=== PATIENT | male | born 1955 | race Caucasian/White ===

== ENCOUNTER 2016-12-24 20:57 | Emergency (ER) | payer SELFPAY ==
[2016-12-24] MEDS ORDERED: GLUCAGON,HUMAN RECOMBINANT 1 MG VIAL ONE (21:30)
--- NOTE | 2016-12-24 21:31 | ERNOTE ---
Medical Problem HPI - Narrative Date of Service: 12/24/16 - General Chief Complaint: General Assessment Time Seen by Provider: 12/24/16 21:10 Source: patient Exam Limitations: no limitations - Immun/Allergies/Home Medications Immunizations: IMMUNIZATION HX History of Influenza Vaccine No Hx Pneumococcal Vaccination No Allergies/Adverse Reactions: Allergies Penicillins Allergy (Verified 12/24/16 21:18) Home Medications: HOME MEDICATIONS Cyanocobalamin (Vitamin B-12) [Vitamin B-12] 2,000 mcg PO 12/24/16 [Last Taken Unknown] - History of Present History Narrative: Patient feels as if he has a piece of food stuck in his throat. he denies fevers or chills. He had some roast beef earlier and did not swallow it with water, which is what he USUALLY does. He feels as if it got stuck in his throat. This has happened to him before. Review of Systems - Review of Systems Constitutional: Present: no symptoms reported EYE: Present: no symptoms reported ENT: Present: See HPI Respiratory: Present: no symptoms reported Cardiology: Present: no symptoms reported Gastrointestinal/Abdominal: Present: See HPI Genitourinary: Present: no symptoms reported Musculoskeletal: Present: no symptoms reported - Patient's Past Medical History Patient History - Medical: No pertinent hx Patient History - Cardiac/Respiratory: CPAP/BiPAP Home Use, Sleep Apnea Patient History - Cancer: No Hx of Cancer Patient History - Surgical Procedures: Other Patient History - Other: None - Social History Living Situations: home Psych History: Hx of Depression Smoking Status: Never smoker Have you smoked in the past 12 months: No Alcohol Use: none Drug Use: none - Immunizations Hx Pneumococcal Vaccination: No History of Influenza Vaccine: No Physical Exam - Physical Exam Narrative: prior to my exam patient vomited in Triage and felt significantly better. I believe he may have dislodged his piece of roast beef from his esophagus when he vomited. General Appearance: Present: wd/wn, alert, no apparent distress Ears, Nose, Throat: Present: normal ENT inspection, other - pt is unable to swallow water and regurgitates it. no FB noted in oropharynx Neck: Present: normal inspection, nontender, supple, full range of motion Respiratory: Present: no respiratory distress, normal breath sounds, no accessory muscle use, chest nontender, lungs clear Cardiovascular/Chest: Present: regular rate, rhythm, no murmur, normal peripheral pulses Gastrointestinal/Abdominal: Present: normal bowel sounds, nontender, nondistended, soft, no organomegaly ED Progress - Vital Signs Patient's Vital Signs:: I have reviewed the patient's vital signs. Vital Signs: Vital Signs 12/24/16 21:09 Temperature 37.2 C Pulse Rate 83 Respiratory 18 Rate Blood Pressure 155/89 O2 Sat by Pulse 98 Oximetry - X-Ray X-Ray #1 X-Ray: chest Interpretation: Interp. by me - Progress/Reassessment Chief Complaint: General Assessment Plan - Plan Plan: trial of passage given after Glucagon, NG tube insertion did not help. I am being told by staff that endoscopic services are NOT available at this facility. [facility] was consulted and they accepted patient to their facility. Dr. Hernandez accepted pt to their facility. patient is adamant that he wants to sign out AMA and have his drive him to [facility] instead of an ambulance transfer. Pt is stable for transfer by private vehicle. Departure - Departure Clinical Impression: Foreign body of esophagus Qualifiers: Encounter type: initial encounter Qualified Code(s): T18.108A - Unspecified foreign body in esophagus causing other injury, initial encounter Disposition: Against medical advice Condition: Good
[2016-12-24] MEDS ORDERED: GLUCAGON,HUMAN RECOMBINANT 1 MG VIAL IV ONE (21:32)
[2016-12-24] MEDS ORDERED: LIDOCAINE HCL 10 APPL CARTRIDGE ONE (22:30)
[2016-12-24 23:08] VITALS: BP 150/90
== END 2016-12-24 23:30 | disposition short-term general hospital (02) ==
LOC: ER 20:57
DX: T18.108A Unspecified foreign body in esophagus causing other injury, initial encounter (principal); Z53.29 Procedure and treatment not carried out because of patient's decision for other reasons